=== PATIENT | male | born 1950 | race Caucasian/White ===

== ENCOUNTER 2016-11-09 09:04 | Emergency (ER) | payer BC ==
[2016-11-09 09:49] VITALS: BP 114/69
--- NOTE | 2016-12-14 17:06 | UC ---
Hip/Pelvis Pain - HPI Summary HPI Summary: pt p/w left hip pain with diffuculty ambuating that started yesterday. pt usualy walks 2 miles qd with no problem. no known injury. fever(102) and chills that started 2 days ago. - History Of Current Complaint Chief Complaint: UCGeneralIllness Stated Complaint: FEVER, CHILLS, HIP PAIN Time Seen by Provider: 11/09/16 09:53 Hx Obtained From: Patient Onset/Duration: Gradual Onset, Lasting Days, Still Present, Worse Since - today Severity Initially: Moderate Severity Currently: Severe Pain Intensity: 8 Pain Scale Used: 0-10 Numeric Location: Discrete At: - left hip Aggravating Factor(s): Movement, Weight Bearing Alleviating Factor(s): Rest, Position Associated Signs And Symptoms: Positive: Fever, Weakness. Negative: Swelling, Redness, Bruising, Dizziness, Syncope, Abdominal Pain, Knee Pain - Allergies/Home Medications Allergies/Adverse Reactions: Allergies Allergy/AdvReac Type Severity Reaction Status Date / Time No Known Allergies Allergy Verified 11/09/16 09:32 Home Medications: Home Medications Dronedarone TAB* [Multaq TAB*] 1 tab DAILY 11/09/16 [History Confirmed 11/09/16] PMH/Surg Hx/FS Hx/Imm Hx Cardiovascular History: Atrial Fibrillation - Surgical History Surgical History: Yes Surgery Procedure, Year, and Place: CHEST TUBE PLACED -2013 AND REMOVED-. APPENDECTOMY. VASECTOMY. UMBILICAL HERNIA REPAIR. INGUINAL HERNIA REPAIR. TONSILLECTOMY. Cardioversion June 2013. Vitrectomy 2014 - Family History Known Family History: Negative: Cardiac Disease, Hypertension, Diabetes - Social History Lives: With Family Alcohol Use: Daily Alcohol Amount: 2-3 GLASSES OF WINE OR BEER PER DAY Substance Use Type: None Smoking Status (MU): Former Smoker Amount Used/How Often: 1 PPD X 25 YEARS Have You Smoked in the Last Year: No When Did the Patient Quit Smoking/Using Tobacco: 1994 - Immunization History Most Recent Influenza Vaccination: NOT YET 2017 Review of Systems Constitutional: Fever, Chills, Fatigue Skin: Negative Eyes: Negative ENT: Negative Respiratory: Negative Cardiovascular: Negative Gastrointestinal: Negative Musculoskeletal: Other: - see hpi Neurological: Negative All Other Systems Reviewed And Are Negative: Yes Physical Exam Triage Information Reviewed: Yes Appearance: Well-Appearing, No Pain Distress, Well-Nourished Vital Signs: Initial Vital Signs Temp 99.1 F 11/09/16 09:36 Pulse 88 11/09/16 09:36 Resp 18 11/09/16 09:36 BP 114/69 11/09/16 09:36 Pulse Ox 97 11/09/16 09:36 Vital Signs Reviewed: Yes Eyes: Positive: Conjunctiva Clear. Negative: Discharge ENT: Positive: Hearing grossly normal. Negative: Muffled/hoarse voice Neck: Positive: Supple, Nontender Respiratory: Positive: Chest non-tender, Lungs clear, Normal breath sounds, No respiratory distress Cardiovascular: Positive: RRR, No Murmur Abdomen Description: Positive: Nontender, Soft Bowel Sounds: Positive: Present Musculoskeletal: Positive: No Edema, ROM Limited @ - left hip, Other: - tender to palpation over left hip Neurological: Positive: Alert, Muscle Tone Normal Psychological: Positive: Age Appropriate Behavior Skin Exam: Normal Hip Injury Course/Dx - Differential Dx/Diagnosis Provider Diagnoses: hip pain, fever Discharge - Discharge Plan Condition: Stable Disposition: [facility] Patient Education Materials: Fever in Adults (ED), Arthralgia (ED), Hip Pain ( ED) Referrals: Arslan Hawkins MD [Primary Care Provider] - As Soon As Possible Additional Instructions: WE ARE CONCERNED THAT YOU MAY HAVE AN INFECTION IN YOUR HIP GIVEN YOUR FEVER AND THE SUDDEN, UNEXPLAINED PAIN IN YOUR HIP. WE RECOMMEDED THAT YOU GO TO THE NEAREST EMERGENCY DEPARTMENT FOR COMPLETE EVALUATION AND TREATMENT. YOU HAVE DECIDED TO GO TO [facility]. PLEASE GO THERE DIRECTLY.
== END 2016-11-09 11:07 ==
LOC: UCCORT 09:04
DX: M25.552 Pain in left hip (principal); R50.9 Fever, unspecified; R53.1 Weakness; I48.91 Unspecified atrial fibrillation; Z87.891 Personal history of nicotine dependence
CPT/HCPCS: 81003; 87086; 87502; 99212; G0463